=== PATIENT | male | born 1985 ===

== ENCOUNTER 2016-05-05 06:58 | Day surgery (SDC) | payer BC ==
--- NOTE | 2016-05-03 12:07 | GHP ---
[f rep st] HISTORY AND PHYSICAL DATE OF ADMISSION: 05/05/2016 SURGERY DATE: May 05, 2016. HISTORY OF PRESENT ILLNESS: Patient is a 30-year-old male, who comes to our office for the first wojciech e, referred by Dr. Sales, for evaluation of 4 months of pain in his left groin region. He has never had surgery in this area. MEDICATIONS: Wellbutrin, Lexapro. ALLERGIES: No known drug allergies. PAST SURGICAL HISTORY: None. SOCIAL HISTORY: Works at [employer]. Nonsmoker, no alcohol use. Patient is . REVIEW OF SYSTEMS: He had a negative 10-point review of systems. PHYSICAL EXAM: GENERAL: Patient is a pleasant male in no apparent distress. HEAD AND NECK: Normoc ephalic atraumatic. CHEST: CTA bilaterally. HEART: Regular rate. ABDOMEN: There is a small left inguinal mass consistent with hernia, and possible weakness of the right internal ring. EXTREMITIES : No lower extremity edema. IMPRESSION: 30-year-old male with left inguinal hernia, possible bilateral hernia. RECOMMENDATION: Laparoscopic bilateral inguinal hernia repair was discussed with the patient in [facility], including risks of recurrence, nerve injury, hematoma, scrotal edema. The patient elects to proc eed with scheduling surgery for May 05, 2016. It was discussed with the patient that he has a ve ry tiny hernia and this may or may not help with the pain that he is experiencing in his left groin. The patient stated he understood. /[id number]/MODL
[~2016-05-05 06:58] MED LIST: ceFAZolin 2 GM/DEXTROSE 100 ML IV ONE
[2016-05-05] MEDS ORDERED: BUPIVACAINE 0.5% 30 ML SDV ONE (07:26)
[2016-05-05] MEDS ORDERED: LIDOCAINE 1% 5 ML SDV ONE (07:30)
[2016-05-05] MEDS ORDERED: LR 1,000 ML IV ONE (07:44)
[2016-05-05] MEDS ORDERED: LIDOCAINE 1% 5 ML SDV ID PRN (07:44)
[2016-05-05] MEDS ORDERED: MIDAZOLAM 2 MG/2 ML VIAL ONE (08:27)
[2016-05-05] MEDS ORDERED: fentaNYL 100 MCG/2 ML INJ ONE ×4 (08:38→10:16)
[2016-05-05] MEDS ORDERED: PROPOFOL 200 MG/20 ML VIAL ONE ×2 (08:39→09:26)
[2016-05-05] MEDS ORDERED: PROPOFOL/EMULSION 500 MG/50 ML BOTTLE IV ONE (08:39)
[2016-05-05] MEDS ORDERED: LIDOCAINE 2% 5 ML SDV ONE (08:40)
[2016-05-05] MEDS ORDERED: ROCURONIUM 50 MG/5 ML VIAL ONE (09:20)
[2016-05-05] MEDS ORDERED: GLYCOPYRROLATE 0.2 MG/1 ML VIAL ONE ×4 (09:21→09:41)
[2016-05-05] MEDS ORDERED: DEXAMETHASONE 4 MG/ML VIAL ONE (09:21)
[2016-05-05] MEDS ORDERED: KETOROLAC 30 MG/1 ML SDV ONE (09:22)
[2016-05-05] MEDS ORDERED: ONDANSETRON 4 MG/2 ML VIAL ONE ×2 (09:23→10:22)
[2016-05-05] MEDS ORDERED: MEPERIDINE 25 MG/ML SYR ONE (10:26)
[2016-05-05] MEDS ORDERED: HYDROCODONE/APAP 5/325 TAB ONE (11:31)
== END 2016-05-05 14:00 | disposition home or self-care (01) ==
LOC: FSGY 06:58
PROVIDERS: ATTEND Surgery
PROC: 0YQ64ZZ Repair Left Inguinal Region, Percutaneous Endoscopic Approach (ICD-10-PCS; principal; 2016-05-05 08:30)
PROC: 0YU54JZ Supplement Right Inguinal Region with Synthetic Substitute, Percutaneous Endoscopic Approach (ICD-10-PCS; principal; 2016-05-05 08:30)
DX: K40.20 Bilateral inguinal hernia, without obstruction or gangrene, not specified as recurrent (principal); F32.9 Major depressive disorder, single episode, unspecified
CPT/HCPCS: 49650; C1727; C1781; J0690; J1100; J1885; J2250; J2405; J2704; J3010